=== PATIENT | female | born 1990 | race Asian ===

== ENCOUNTER 2021-09-25 12:27 | Outpatient (CLI) | payer OTHER ==
[2021-09-25] MEDS ORDERED: IOTHALAMATE MEGLUMINE 50 ML VIAL ONE (12:41)
[2021-09-25] MEDS ORDERED: GADOBUTROL 7.5 MMOL/7.5 ML VIAL ONE (12:41)
[2021-09-25] MEDS ORDERED: LIDOCAINE 1% 10 ML MDV SUBQ ONE (13:43)
[2021-09-25] MEDS ORDERED: GADOBUTROL 7.5 MMOL/7.5 ML VIAL IVP ONE (13:44)
[2021-09-25] MEDS ORDERED: IOTHALAMATE MEGLUMINE 50 ML VIAL IVP ONE (13:44)
--- NOTE | 2021-09-25 14:10 | XRAY Report ---
PROCEDURE: Arthrogram Needle Placement INDICATIONS: ANESTHESIA OF SKIN, SHOULDER PAIN TECHNIQUE: The indications, alternatives, benefits, risks, and complications of the procedure were explained to the patient. Written informed consent was obtained and placed in the chart. The shoulder was examin ed fluoroscopically and a site for needle placement chosen for entry into the glenohumeral joint from an anterior approach. The skin was prepped and draped in the usual fashion, and 1% lidocaine infilt rated from skin down to joint capsule. A spinal needle was inserted into the glenohumeral joint, and a small amount of iodinated contrast media injected to confirm intra-articular placement of the need le tip. This was followed by approximately 12 mL dilute solution of a gadolinium containing MR contr ast agent. The needle was removed and a dressing was applied. The patient was given postprocedural instructions and sent to the MR suite for MR imaging. FINDINGS: A single fluoroscopic spot image demonstrates intra-articular location of injected iodinated contrast . IMPRESSION: Successful fluoroscopically guided administration of dilute Gadolinium solution into the shoulder mary awad for MR shoulder arthrogram. Reviewed by: Cresencio Lim MD on 09/25/2021 2:09 PM PST Approved by: Cresencio Lim MD on 09/25/2021 2:09 PM PST Station ID: [id number]
--- NOTE | 2021-09-25 15:08 | MRI Report ---
PROCEDURE: Arthrogram Shoulder RT INDICATIONS: ANESTHESIA OF SKIN, SHOULDER PAIN CONTRAST: Fluoroscopic images from arthrogram injection performed earlier the same day. TECHNIQUE: After the administration of 12 mL of dilute intra-articular Gadolinium contrast, oblique coronal T1 a nd T2 spin echo with fat saturation, oblique sagittal T1 spin echo with and without fat saturation, o blique sagittal T2 fast spin echo with fat saturation, axial T1 spin echo with fat saturation through the shoulder. COMPARISON: None. FINDINGS: Image quality: Images are mildly degraded by patient motion despite repeat sequences being acquired. Diagnostic information is obtained. Rotator cuff: Mild supraspinatus tendinosis. Infraspinatus, teres minor, and subscapularis tendons a re intact. Increased T1-weighted signal within the superior subscapularis tendon and along the medial subscapularis muscle are most likely secondary to extravasation during the arthrogram injection, alt simon a small tear could be obscured. The rotator cuff musculature is normal in bulk. Bones and bursae: No acute trabecular bone injury. No significant glenohumeral degenerative changes are seen. The acromioclavicular joint is normally aligned. No significant subacromial/subdeltoid burs al effusion is seen. No filling defect is seen within the glenohumeral joint space. Capsule and soft tissues: There is nondisplaced tearing of the superior labrum extending into the po sterosuperior and anterosuperior labrum. There is mild tendinosis of the biceps long head tendon. The glenohumeral ligaments are grossly intact. IMPRESSION: 1.Nondisplaced tearing of the superior labrum extending to the anterosuperior and posterosuperior lab rum. 2.Mild biceps long head tendinosis. 3.Mild supraspinatus tendinosis. No significant rotator cuff tendon tear is seen. Reviewed by: Rajeev Dover MD on 09/25/2021 3:07 PM [facility] Approved by: Rajeev Dover MD on 09/25/2021 3:07 PM [facility] Station ID: [id number]
== END 2021-09-25 12:28 | disposition home or self-care (01) ==
LOC: DI 12:27
PROVIDERS: ATTEND Student in an Organized Health Care Education/Training Program
DX: S43.431A Superior glenoid labrum lesion of right shoulder, initial encounter (principal); M67.921 Unspecified disorder of synovium and tendon, right upper arm
CPT/HCPCS: 23350; 73222; 77002; A9585; Q9961

== ENCOUNTER 2022-09-13 08:58 | Outpatient (CLI) | payer OTHER | END 2022-09-13 08:59 | disposition home or self-care (01) | LOC: SC 08:58 | PROVIDERS: ATTEND Nurse Practitioner Family | DX: G47.33 Obstructive sleep apnea (adult) (pediatric) (principal) | CPT/HCPCS: 95806 ==

== ENCOUNTER 2023-01-15 11:23 | Outpatient (CLI) | payer OTHER ==
--- NOTE | 2023-01-15 12:09 | SLEEP CARE CONSULTATION ---
Information from patient questionnaire entered by Heath Jones. I have reviewed and concur with the information entered by Heath Jones. This document represents the service I personally performed and the decisions made by me, Kiara Krishna ARNP. History of Present Illness Service Date and Time: 01/15/2023 1123 Previous diagnosis: Mild, Obstructive Sleep Apnea-Hypopnea Syndrome AHI: 5.3 (in 2021) Reason for follow up: first compliance Equipment type: CPAP (RESMED AirSense 11, s/u 10/2022) Equipment obtained from: Other ([facility], getting supplies) Mask style: Nasal (small cushion, over the nose) Backup mask available: No (will keep old mask when replaced) Last cushion change: month Prior sleep studies: No Type of Sleep Study: Home sleep study (COMPLETED 09/14/22) HPI additional information: GERALDINE GONZALEZ was diagnosed to have mild, AHI 5.3, obstructive sleep apnea- hypopnea syndrome and returned today for CPAP therapy first compliance follow- up. Sleep Study - Results Type of Sleep Study: Home sleep study (COMPLETED 09/14/22) Prior sleep studies: No CPAP Compliance Data - Data Reviewed with Patient Average duration of nightly device use: 5 hours 44 minutes Compliance rate %: 67 (25/30 days used) Current pressure setting (cmH2O): 4-15 (median 5.9, avg 8.8, max 9.6) Average residual AHI: 0.3 Central apnea: 0.1 Obstructive apnea: 0.1 Hypopnea: 0.1 Average large leak: 0.5 LPM Compliance data discussion: She is changing from nights to days schedule right now. Subjective Missed days of use due to: reports: travel, other (allergy; left at home when sleeping at friends house) Patient concerns: reports: condensation in mask/hose (better with adjustments she made), other (headache with TMJ). denies: aerophagia, mask discomfort, air blowing in eyes, mask leak noise, nasal congestion, dry mouth, nose, throat, epistaxis Observed to snore while using device: No Current pressure setting perceived as: comfortable On therapy, patient: reports: sleeping better, awakening more refreshed, being more awake and alert during the day, more rested overall, other (less dry mouth). denies: drowsiness while driving Initial [place] Sleepiness Scale score: 9 (08/21/2022) Current [place] Sleepiness Scale score: 15 (01/15/23) Allergies and Home Medications Known drug allergies: No Drug allergies reviewed: Yes Home medication list reviewed: Yes (no changes) Allergy and home medication list: Allergies No Known Drug Allergies Allergy Review of Systems Review of systems same as previous: No (Myofascial pain syndrome of right shoulder) Physical Exam Vital signs obtained and entered by: HEATH Dash MA Blood Pressure: 108/60 (LEFT ARM) Cuff size: regular Heart Rate: 68 O2 Saturation: 98 Height: 5 ft 3 in Weight: 153 lb 9.6 oz Body Mass Index: 27.1 BMI Classification: Overweight Impression and Plan 1. Obstructive Sleep Apnea-Hypopnea Syndrome, mild, with fair treatment compliance and good apnea control. On CPAP therapy, the patient has better sleep quality and is more rested overall. She has been having some problem with allergies and TMJ pain. She is waiting to get her mouth guard fixed so she can use it. She gets more headaches from not being able to use the device as well. She is happy with CPAP use and does feel an improvement of her sleep. Her pressure occasionally feels high but overall has been comfortable. The patients pressure will be changed to autoCPAP 6-8 cmH20 to reflect pressures being used. Patient advised to contact me if pressure change is uncomfortable so that it can be adjusted. Goals for apnea control discussed. Patient's apnea severity and rationale for treatment to reduce apnea, improve sleep quality and reduce cardiovascular and cerebrovascular events was reviewed. I also reviewed the benefit of consistent device use of CPAP for depression, anxiety and mood disorder. 2. Overweight, unspecified. Currently patients BMI is 27.1. Obesity increases the risk of apnea, CPAP pressure requirements and overall health risks especially cardiovascular and diabetes. Thus patient is advised to lose weight. The patient's CPAP pressure range should accommodate some weight loss. Symptoms to report for additional pressure adjustment discussed. * Change auto CPAP pressure to 6-8 cmH2O * Notify me if snoring with mask or feeling that the pressure is too much or too little * Attempt to lose weight * Call this office if any problems using CPAP * Return for follow up in 1-2 months, or sooner if concerns arise Counseling Topics: Spare mask, Weight loss health impact Visit Type: In Office Time Spent with Patient (minutes): 21 Provider Statement: I spent 100% of the Face to Face Visit with the patient with greater than 50% spent counseling the patient and coordination of care.
[2023-01-15 13:24] VITALS: BP 108/60
== END 2023-01-15 11:24 | disposition home or self-care (01) ==
LOC: SC 11:23
PROVIDERS: ATTEND Nurse Practitioner Family
DX: G47.33 Obstructive sleep apnea (adult) (pediatric) (principal); E66.3 Overweight; Z68.27 Body mass index [BMI] 27.0-27.9, adult
CPT/HCPCS: 99212; 99213

== ENCOUNTER 2023-02-14 13:39 | Outpatient (CLI) | payer OTHER ==
--- NOTE | 2023-02-14 14:38 | Sleep Patient Instructions ---
Sleep Center Visit Summary - Patient Visit Information Reason for Visit: 1 month CPAP therapy follow up - Patient Instructions Additional Instructions: You will continue with CPAP therapy with pressure set at 6-8 cmH2O. We encourage you to continue to try to lose weight. Please follow up with the sleep care office in 3 months. - Clinic Information Contact: [facility] [address] [place] [id number] [email or web address] T: [phone]
--- NOTE | 2023-02-14 14:40 | SLEEP CARE CONSULTATION ---
Information from patient questionnaire entered by Heath Jones. I have reviewed and concur with the information entered by Heath Jones. This document represents the service I personally performed and the decisions made by me, Kiara Krishna ARNP. History of Present Illness Service Date and Time: 02/14/2023 1339 Previous diagnosis: Mild, Obstructive Sleep Apnea-Hypopnea Syndrome AHI: 5.3 (in 2021) Reason for follow up: one month Equipment type: CPAP (RESMED AirSense 11, s/u 10/2022) Equipment obtained from: Other ([facility], getting supplies) Mask style: Nasal (small cushion, over the nose) Backup mask available: Yes (will keep old mask since new one is on the way) Last cushion change: 2 weeks ago Prior sleep studies: No Type of Sleep Study: Home sleep study (COMPLETED 09/14/22) HPI additional information: GERALDINE GONZALEZ was diagnosed to have mild, AHI 5.3, obstructive sleep apnea- hypopnea syndrome and returned today for CPAP therapy one month follow-up. Sleep Study - Results Type of Sleep Study: Home sleep study (COMPLETED 09/14/22) Prior sleep studies: No CPAP Compliance Data - Data Reviewed with Patient Average duration of nightly device use: 5 HRS 30 MIN Compliance rate %: 70 ( days used) Current pressure setting (cmH2O): 6-8 Average residual AHI: 0.4 Central apnea: 0.1 Obstructive apnea: 0.2 Average large leak: 0.6 L/min Subjective Missed days of use due to: reports: other (fell asleep without mask) Patient concerns: reports: air blowing in eyes, condensation in mask/hose, other (headache due to TMJ/myofascial pain--grinds teeth). denies: aerophagia, mask discomfort, mask leak noise, nasal congestion, dry mouth, nose, throat, epistaxis Current pressure setting perceived as: comfortable On therapy, patient: reports: sleeping better, awakening more refreshed, being more awake and alert during the day, more rested overall, drowsiness while driving (some due to shift changing) Initial [place] Sleepiness Scale score: 9 (08/21/2022) Current [place] Sleepiness Scale score: 15 (02/14/23) Allergies and Home Medications Known drug allergies: No Drug allergies reviewed: Yes Home medication list reviewed: Yes (Cetirizine) Allergy and home medication list: Allergies No Known Drug Allergies Allergy Review of Systems Review of systems same as previous: No (myofascial pain syndrome (PT); mild carpal tunnel (OT)) Physical Exam Vital signs obtained and entered by: HEATH Dash MA Blood Pressure: 100/60 (LEFT ARM) Cuff size: regular Heart Rate: 87 O2 Saturation: 98 Height: 5 ft 3 in Weight: 153 lb Body Mass Index: 27.1 BMI Classification: Overweight Impression and Plan 1. Obstructive Sleep Apnea-Hypopnea Syndrome, mild, with good treatment compliance and good apnea control. On CPAP therapy, the patient has better sleep quality and is more rested overall. She is doing well and has significant improvement of her sleep apnea. She has no major cpap concerns. Patient's apnea severity and rationale for treatment to reduce apnea, improve sleep quality and reduce cardiovascular and cerebrovascular events was reviewed. I also reviewed the benefit of consistent device use of CPAP for depression, anxiety and mood disorder. 2. Overweight, unspecified. Currently patients BMI is 27.1. Obesity increases the risk of apnea, CPAP pressure requirements and overall health risks especially cardiovascular and diabetes. Thus patient is advised to lose weight. * Continue auto CPAP pressure at 6-8 cmH2O * Notify me if snoring with mask or feeling that the pressure is too much or too little * Attempt to lose weight * Call this office if any problems using CPAP * Return for follow up in 3 months, or sooner if concerns arise Counseling Topics: Spare mask, Weight loss health impact Visit Type: In Office Time Spent with Patient (minutes): 20 Provider Statement: I spent 100% of the Face to Face Visit with the patient with greater than 50% spent counseling the patient and coordination of care.
[2023-02-14 15:01] VITALS: BP 100/60
== END 2023-02-14 13:40 | disposition home or self-care (01) ==
LOC: SC 13:39
PROVIDERS: ATTEND Nurse Practitioner Family
DX: G47.33 Obstructive sleep apnea (adult) (pediatric) (principal); E66.3 Overweight; Z68.27 Body mass index [BMI] 27.0-27.9, adult
CPT/HCPCS: 99212; 99213

== ENCOUNTER 2023-11-14 08:00 | Outpatient (CLI) | payer OTHER ==
[2023-11-15 08:18] LABS: BILIRUBIN,URINE NEGATIVE (NEGATIVE); GLUCOSE, URINE (UA) NEGATIVE (NEGATIVE); KETONES,URINE (UA) NEGATIVE (NEGATIVE); LEUKOCYTE ESTERASE, URINE NEGATIVE (NEGATIVE); NITRITE,URINE NEGATIVE (NEGATIVE); OCCULT BLOOD,URINE NEGATIVE (NEGATIVE); PH,URINE 6.5 PH (5.0-7.5); PROTEIN,URINE NEGATIVE (NEGATIVE); UROBILINOGEN,URINE 0.2 (NORMAL) E.U./dL (NORMAL)
[2023-11-15 08:27] LABS: BACTERIA,URINE Rare /HPF (None Seen); CLARITY,URINE CLEAR (CLEAR); RBC,URINE None Seen /HPF (0-5); SQUAMOUS EPITHELIAL CELL,UR RARE Squamous (<= Few); WBC,URINE 0-3 /HPF (0-5)
== END 2023-11-14 23:59 | disposition home or self-care (01) ==
LOC: LAB.WC 08:00
PROVIDERS: ATTEND Obstetrics & Gynecology
DX: Z34.90 Encounter for supervision of normal pregnancy, unspecified, unspecified trimester (principal)
CPT/HCPCS: 81001; 87086

== ENCOUNTER 2023-11-26 12:55 | Outpatient (CLI) | payer OTHER ==
--- NOTE | 2023-11-26 17:36 | Ultrasound Report ---
PROCEDURE: OB 1st Trimester w/TV INDICATIONS: POSITIVE TEST OUTSIDE/PRIOR DATING DATA: Last menstrual period (LMP): 09/13/2023. LMP-based estimated date of delivery (WILFRED): 06/19/2024. First dating scan (date and location): 11/26/2023. Estimated date of delivery (WILFRED) from first dating scan: 06/19/2024. TECHNIQUE: Real-time scanning was performed of the fetus and maternal pelvic organs, with image documentation. Endovaginal scanning was also performed to better visualize the fetus and maternal ovaries. COMPARISON: None. FINDINGS: Intrauterine gestational sac present. Embryo: Single live intrauterine is identified with crown-rump length measuring 3.6 cm cor responding to 10 weeks 4 days Heart rate: 178 bpm. Other: No perigestational fluid collection. Measurement variability in dating: +/- 4 weeks by LMP, +/- 7 days by mean sac diameter (use before 6 weeks gestation if crown-rump length not able to be measured), +/- 5 days by crown-rump length (6-12 weeks gestation). Maternal organs: Ovaries appear within normal limits. Multiple uterine fibroids largest measuring 3. 7 cm. IMPRESSION: Single live intrauterine with gestational age of 10 weeks 4 days. Uterine fibroids. Recommend follow-up imaging at 2022 weeks for dates and anatomy. Reviewed by: Rubina Sprague MD on 11/26/2023 5:35 PM PST Approved by: Rubina Sprague MD on 11/26/2023 5:35 PM PST Station ID: [id number]
== END 2023-11-26 12:56 | disposition home or self-care (01) ==
LOC: DI 12:55
PROVIDERS: ATTEND Obstetrics & Gynecology
DX: Z34.91 Encounter for supervision of normal pregnancy, unspecified, first trimester (principal)

== ENCOUNTER 2023-12-12 08:00 | Outpatient (CLI) | payer OTHER ==
[2023-12-12 20:44] LABS: CHLAMYDIA TRACHOMATIS DNA NEGATIVE (NEGATIVE); NEISSERIA GONORRHOEAE DNA NEGATIVE (NEGATIVE); TRICHOMONAS VAGINALIS DNA NEGATIVE (NEGATIVE)
== END 2023-12-12 23:59 | disposition home or self-care (01) ==
LOC: LAB.WC 08:00
PROVIDERS: ATTEND Nurse Practitioner
DX: Z11.3 Encounter for screening for infections with a predominantly sexual mode of transmission (principal)
CPT/HCPCS: 87491; 87591; 87661

== ENCOUNTER 2024-01-31 15:13 | Outpatient (CLI) | payer OTHER ==
--- NOTE | 2024-01-31 16:52 | Ultrasound Report ---
PROCEDURE: OB Anatomy Scan INDICATIONS: SUPERVISION OF OUTSIDE/PRIOR DATING DATA: Last menstrual period (LMP): 09/13/2023. LMP-based estimated date of delivery (WILFRED): 06/19/2024. First dating scan (date and location): 11/26/2023. Estimated date of delivery (WILFRED) from first dating scan: 06/19/2024. The below data below was generated using the ultrasound WILFRED of 06/19/2024 TECHNIQUE: Real-time scanning was performed of the fetus, with image documentation and biometric measurements. Endovaginal scanning: Not performed. COMPARISON: OB ultrasound 11/26/2023. FINDINGS: General: A single living intrauterine gestation is present. Presentation: Variable Placenta: Placental position is anterior, without previa. Amniotic fluid index: 12.4 cm, within normal limits for gestational age. Largest pocket 3.5 cm. heart rate: 150 beats per minute. Maternal cervical canal: 3.9 cm long; normal length is 2.5 cm or more. biometrics: Biparietal diameter: 4.23 cm, 18 weeks 6 days. 9th percentile Head circumference: 16.2 cm, 19 weeks 0 days, 7th percentile. Abdominal circumference: 14.1 cm, 19 weeks 3 days, 27th percentile Femur length: 3.04 cm, 19 weeks 3 days, 22nd percentile Estimated gestational age from initial scan: 20 weeks 0 days Composite gestational age from present scan: 19 weeks 0 days Estimated weight and percentile: 289 grams, 16th percentile Measurement variability in biometric dating: +/- 10 days from 12-20 weeks gestation, +/- 2 weeks from 20-30 weeks gestation, +/- 3 weeks at 30 weeks gestation or later. Anatomic survey: Neuro: Ventricles are normal at less than 10 mm. Cisterna magna is normal at 3-11 mm. Cerebellum i s normal in size and morphology. Nuchal skin fold: Normal at less than 6 mm between 14 and 20 weeks gestational age. Face: Nose and lips, facial profile are normal. Spine: No evidence for spina bifida. Heart: 4-chambered heart is present, with normal ventricular outflow tracts. Diaphragm: Diaphragm is intact. Stomach: Left-sided stomach is present. Kidneys: No hydronephrosis. Normal is less than 5 mm in 2nd trimester, less than 7 mm in 3rd trimester. Cord: 3 vessel cord has orthotopic insertion. Bladder: Normal in size. Extremities: All 4 extremities are visualized. A few uterine fibroids. Largest measuring 6.8 x 5.1 x 3.9 cm, appears increased. IMPRESSION: 1. Lopez living intrauterine at 19 weeks 0 days based on today's ultrasound. Fetus is i n the 16th percentile for weight. 2. Normal placenta and amniotic fluid. 3. Normal and complete anatomic survey. Reviewed by: Jas Parsons MD on 01/31/2024 4:51 PM PDT Approved by: Jas Parsons MD on 01/31/2024 4:51 PM PDT Station ID: [id number]
== END 2024-01-31 15:14 | disposition home or self-care (01) ==
LOC: DI 15:13
PROVIDERS: ATTEND Nurse Practitioner
DX: Z34.92 Encounter for supervision of normal pregnancy, unspecified, second trimester (principal)

== ENCOUNTER 2024-02-03 10:41 | Outpatient (CLI) | payer OTHER ==
[2024-02-03 10:59] LABS: BASOPHILS % (AUTO) 0.2 %; EOSINOPHILS % (AUTO) 0.9 %; HCT - HEMATOCRIT 38.2 % (37.0-47.0); HGB - HEMOGLOBIN 12.6 g/dL (12.0-16.0); LYMPHOCYTES % (AUTO) 14.1 %; MEAN CORPUSCULAR HEMOGLOBIN 29.5 pg (27.0-31.0); MEAN CORPUSCULAR VOLUME 89.5 fL (81.0-99.0); MEAN PLATELET VOLUME 11.8 fL (7.9-10.8); MONOCYTES % (AUTO) 6.7 %; NEUTROPHILS % (AUTO) 77.5 %; PLT - PLATELET COUNT 170 10^3/uL (130-450); RED BLOOD COUNT 4.27 10^6/uL (4.20-5.40); RED CELL DISTRIBUTION WIDTH 12.9 % (12.0-15.0); WHITE BLOOD COUNT 14.1 x10^3/uL (4.8-10.8)
[2024-02-03 11:05] LABS: SLIDE REVIEW? Indicated
[2024-02-03 11:23] LABS: ABNORMAL LYMPHS % (MANUAL) 0 %; BAND NEUTROPHILS % (MANUAL) 0 %
[2024-02-03 11:25] LABS: EOSINOPHILS # (MANUAL) 0.1 10^3/uL (0-0.7); LYMPHOCYTES # (MANUAL) 1.3 10^3/uL (1.5-3.5); LYMPHOCYTES % (MANUAL) 6 %; MONOCYTES # (MANUAL) 0.7 10^3/uL (0.0-1.0); MYELOCYTES % (MANUAL) 1 %; NEUTROPHILS # (MANUAL) 11.8 10^3/uL (1.5-6.6); REACTIVE LYMPHS % (MANUAL) 3 %
[2024-02-03 11:26] LABS: DIFFERENTIAL COMMENT MANUAL DIFFERENTIAL; RBC MORPHOLOGY (MULTIPLE) 1+ ANISOCYTOSIS (NORMAL)
[2024-02-04 05:12] LABS: HBsAG SCREEN Negative (Negative); HIV SCREEN 4TH GENERATION Non Reactive (Non Reactive)
[2024-02-04 06:10] LABS: RPR Non Reactive (Non Reactive)
[2024-02-04 09:10] LABS: VARICELLA-ZOSTER AB IGG 336 index (Immune >165)
[2024-02-05 01:07] LABS: HCV AB Non Reactive (Non Reactive)
== END 2024-02-03 10:42 | disposition home or self-care (01) ==
LOC: LAB 10:41
PROVIDERS: ATTEND Obstetrics & Gynecology
DX: Z34.90 Encounter for supervision of normal pregnancy, unspecified, unspecified trimester (principal)
CPT/HCPCS: 36415; 81511; 85025; 86592; 86762; 86787; 86803; 86850; 86900; 86901; 87340; 87389

== ENCOUNTER 2024-03-12 10:23 | Outpatient (CLI) | payer OTHER ==
[2024-03-12 10:48] VITALS: BP 122/68
--- NOTE | 2024-03-12 13:17 | PROVIDER PROGRESS NOTE ---
- HPI Chief Complaint: Labor Current : Vital Signs Temperature 98.6 F 03/12/24 10:40 Heart Rate 90 03/12/24 10:40 Respiratory Rate 16 03/12/24 10:40 Blood Pressure 122/68 03/12/24 10:40 Temperature 98.6 F 03/12/24 10:40 Heart Rate 90 03/12/24 10:40 Respiratory Rate 16 03/12/24 10:40 Blood Pressure 122/68 03/12/24 10:40 O2 Saturation If not protocol: Oxygen Flow, liters/minute - Procedures OB Procedure Performed: NST Diagnosis/Indication for NST: labor NST Procedure: EFM: 140s, moderate variability, no decelerations Petty: no contractions monitoring reassuring (Too early for NST) Performed and read 03/12/24 Service Date of procedure: 03/12/24 - Plan Plan: 33yo at 25.6w by LMP consistent with 10w US presenting with her with concern of cramping pains since last night. Denies leaking fluid or vaginal bleeding. Good movement. complicated by history of LEEP/CKC, fibroid uterus, AMA. Allergies: None Meds: Buproprion Med: Depression/anxiety, sleep apnea Surg: Right shoulder, LEEP/CKC Fam: MGF Stroke Social: , denies JESSICA VSS as above GEN: NAD CV: Regular rate Resp: Breathing unlabored Abd: soft, nt, no rebound or guarding Ext: nt Speculum: FFN collected, no pooling or bleeding, unable to visualize cervix SVE: closed but very posterior limited exam US CL: 2.3cm, 1.8cm FFN POS 33yo at 25.6w by LMP consistent with 10w US with incompetent cervix, threatened labor - Discussed with patient, recommend to be monitored in tertiary center. She accepts plan but would like to drive POV. Reviewed risks including labor and delivery, alternatives including ambulance and helicopter transfer. She prefers POV, signed consents for transfer and POV. - Appreciate [facility] acceptance of this patient. - Initially difficult to obtain labs and IV placement and now deferred as she will be travelling POV. - Patient to drive now to for monitoring.
[2024-03-12] MEDS ORDERED: LACTATED RINGERS 1,000 ML IV SCH (14:00)
--- NOTE | 2024-03-12 14:03 | Ultrasound Report ---
PROCEDURE: OB 14+ Weeks INDICATIONS: Cramping 24w, history of LEEP and CKC, uterine fib OUTSIDE/PRIOR DATING DATA: Last menstrual period (LMP): 09/13/2023. LMP-based estimated date of delivery (WILFRED): 06/19/2024. The below data below was generated using the clinical WILFRED of 06/19/2024 TECHNIQUE: Real-time scanning was performed of the fetus, with image documentation and biometric measurements. Endovaginal scanning: Not performed. COMPARISON: 01/31/2024. FINDINGS: General: A single living intrauterine gestation is present. Presentation: Vertex Placenta: Placental position is anterior, without previa. Amniotic fluid index: 15.3 cm, within normal limits for gestational age. heart rate: 145 beats per minute. Maternal cervical canal: 2.3 cm long; normal length is 2.5 cm or more. IMPRESSION: Single living intrauterine at 25 weeks 6 days, WILFRED of 06/19/2024. Incompetent cervix, measuring 2.3 cm with transvaginal view. Reviewed by: Hao Lemons MD on 03/12/2024 2:02 PM PDT Approved by: Hao Lemons MD on 03/12/2024 2:02 PM PDT Station ID: [id number]
== END 2024-03-12 15:20 | disposition short-term general hospital (02) ==
LOC: FBP 10:23 → WFO 10:23
PROVIDERS: ATTEND Obstetrics & Gynecology
DX: O09.512 Supervision of elderly primigravida, second trimester (principal); O34.32 Maternal care for cervical incompetence, second trimester; O47.02 False labor before 37 completed weeks of gestation, second trimester; O34.12 Maternal care for benign tumor of corpus uteri, second trimester; D25.9 Leiomyoma of uterus, unspecified; O99.342 Other mental disorders complicating pregnancy, second trimester; F32.A Depression, unspecified; Z3A.25 25 weeks gestation of pregnancy; Z98.890 Other specified postprocedural states
CPT/HCPCS: 36415; 80053; 82731; 85025; 99215

== ENCOUNTER 2024-04-01 10:04 | Outpatient (CLI) | payer OTHER ==
[2024-04-01 11:23] LABS: HGB - HEMOGLOBIN 11.6 g/dL (12.0-16.0); MEAN CORPUSCULAR HGB CONC 33.1 g/dL (32.0-36.0); MEAN CORPUSCULAR VOLUME 90.4 fL (81.0-99.0); MEAN PLATELET VOLUME 12.3 fL (7.9-10.8); RED BLOOD COUNT 3.87 10^6/uL (4.20-5.40); RED CELL DISTRIBUTION WIDTH 13.2 % (12.0-15.0); WHITE BLOOD COUNT 12.4 x10^3/uL (4.8-10.8)
[2024-04-02 05:13] LABS: RPR Non Reactive (Non Reactive)
== END 2024-04-01 10:05 | disposition home or self-care (01) ==
LOC: LAB 10:04
PROVIDERS: ATTEND Nurse Practitioner
DX: O09.512 Supervision of elderly primigravida, second trimester (principal)
CPT/HCPCS: 36415; 82950; 85027; 86592

== ENCOUNTER 2024-04-06 08:22 | Outpatient (CLI) | payer OTHER ==
[2024-04-06 09:05] LABS: GTT GLUCOSE,FASTING 94 mg/dL (74-109)
== END 2024-04-06 08:23 | disposition home or self-care (01) ==
LOC: LAB 08:22
PROVIDERS: ATTEND Nurse Practitioner
DX: O99.810 Abnormal glucose complicating pregnancy (principal)
CPT/HCPCS: 36415; 82951; 82952

== ENCOUNTER 2024-04-14 11:13 | Outpatient (CLI) | payer OTHER ==
--- NOTE | 2024-04-15 00:07 | Ultrasound Report ---
PROCEDURE: OB Follow up INDICATIONS: UTERINE FIBROIDS IN OUTSIDE/PRIOR DATING DATA: Last menstrual period (LMP): 09/13/2023. LMP-based estimated date of delivery (WILFRED): 06/19/2024. First dating scan (date and location): 11/26/2023. Estimated date of delivery (WILFRED) from first dating scan: 06/19/2024. The below data below was generated using the clinical WILFRED of 06/19/2024 TECHNIQUE: Real-time scanning was performed of the fetus, with image documentation and biometric measurements. Endovaginal scanning: Not performed. COMPARISON: OB ultrasound 03/12/2024 FINDINGS: General: A single living intrauterine gestation is present. Presentation: Breech Placenta: Placental position is anterior, without previa. Amniotic fluid index: 16.8 cm, within normal limits for gestational age. Largest pocket 4.9 cm heart rate: 157 beats per minute. Maternal cervical canal: 3.1 cm cm long; normal length is 2.5 cm or more. Proximal cervix appears op en. biometrics: Biparietal diameter: 7.4 cm, 29 weeks 4 days. 13.3 percentile. Head circumference: 28.8 cm, 31 weeks 5 days. 47th percentile. Abdominal circumference: 26.3 cm, 30 weeks 3 days. 42nd percentile. Femur length: 5.5 cm, 29 weeks 1 day. 7th percentile. Estimated gestational age from initial scan: 30 weeks 4 days Composite gestational age from present scan: 30 weeks 1 day Estimated weight and percentile: 1507 g. 22nd percentile. Measurement variability in biometric dating: +/- 10 days from 12-20 weeks gestation, +/- 2 weeks from 20-30 weeks gestation, +/- 3 weeks at 30 weeks gestation or more. Small fibroid measuring 1.9 cm. IMPRESSION: 1. Lopez living intrauterine at 30 weeks 1 day based on today's ultrasound. Fetus is in the 22nd percentile for weight. Femur length is 7th percentile. 2. Normal placenta and amniotic fluid. 3. Cervix measures 3.1 cm in length. The proximal cervix appears open/ incompetent. Preliminary findings were conveyed to Dr. Ames by the platen grinder at 12:01 PM. Reviewed by: Jas Parsons MD on 04/15/2024 12:06 AM PDT Approved by: Jas Parsons MD on 04/15/2024 12:06 AM PDT Station ID: [id number]
== END 2024-04-14 11:14 | disposition home or self-care (01) ==
LOC: DI 11:13
PROVIDERS: ATTEND Nurse Practitioner
DX: O09.513 Supervision of elderly primigravida, third trimester (principal); O34.13 Maternal care for benign tumor of corpus uteri, third trimester; O26.873 Cervical shortening, third trimester; Z3A.30 30 weeks gestation of pregnancy

== ENCOUNTER 2024-05-08 13:18 | Outpatient (CLI) | payer OTHER | END 2024-05-08 13:19 | disposition home or self-care (01) | LOC: MAC.DIA 13:18 | PROVIDERS: ATTEND Nurse Practitioner | DX: O24.410 Gestational diabetes mellitus in pregnancy, diet controlled (principal); Z71.3 Dietary counseling and surveillance; Z71.89 Other specified counseling ==

== ENCOUNTER 2024-05-11 10:11 | Outpatient (CLI) | payer OTHER ==
--- NOTE | 2024-05-11 17:51 | Ultrasound Report ---
PROCEDURE: OB Follow up INDICATIONS: GESTATIONAL DIABETES MELLITUS OUTSIDE/PRIOR DATING DATA: Last menstrual period (LMP): 09/13/2023. LMP-based estimated date of delivery (WILFRED): 06/19/2024. First dating scan (date and location): 11/26/2023. Estimated date of delivery (WILFRED) from first dating scan: 06/19/2023. The below data below was generated using the sonographic WILFRED of the TECHNIQUE: Real-time scanning was performed of the fetus, with image documentation and biometric measurements. Endovaginal scanning: Not performed. COMPARISON: 04/14/2024 FINDINGS: General: A single living intrauterine gestation is present. Presentation: Vertex Placenta: Placental position is anterior, without previa. Amniotic fluid index: 14.0 cm, largest pocket is 4.3 cm, normal for gestational age. heart rate: 153 beats per minute. Maternal cervical canal: Closed and 3.5 cm long; normal length is 2.5 cm or more. biometrics: Biparietal diameter: 8.3 cm, 33 weeks, 3 days, 20th percentile Head circumference: 30.9 cm, 34 weeks, 4 days, 18th percentile Abdominal circumference: 30.4 cm, 34 weeks, 2 days, 52nd percentile Femur length: 6.2 cm, 32 weeks, 1 day, 3rd percentile Estimated gestational age from initial scan: 34 weeks 3 days Composite gestational age from present scan: 33 weeks 4 days Estimated weight and percentile: 2242 g, 23rd percentile Measurement variability in biometric dating: +/- 10 days from 12-20 weeks gestation, +/- 2 weeks from 20-30 weeks gestation, +/- 3 weeks at 30 weeks gestation or more. Other: Maternal uterine fibroid measures 2.7 cm in size. IMPRESSION: Single intrauterine with appropriate symmetric growth since prior exam. Composite gestational age is 6 days behind the expected gestational age. Estimated weight of the 23rd percentile. The cervix now appears closed. Normal amniotic fluid volume. Reviewed by: Teri Murray MD on 05/11/2024 5:50 PM PDT Approved by: Teri Murray MD on 05/11/2024 5:50 PM PDT Station ID: [id number]
== END 2024-05-11 10:12 | disposition home or self-care (01) ==
LOC: DI 10:11
PROVIDERS: ATTEND Nurse Practitioner
DX: O24.410 Gestational diabetes mellitus in pregnancy, diet controlled (principal); Z3A.33 33 weeks gestation of pregnancy

== ENCOUNTER 2024-05-21 17:31 | Outpatient (CLI) | payer OTHER ==
--- NOTE | 2024-05-21 17:55 | HISTORY & PHYSICAL EXAMINATION ---
Admit History - Visit Reason Visit Reason: Membranes rupture - Other Maternal History Other Maternal History: HPI: 33-year-old G1, P0 at 35 weeks 6 days gestation by LMP consistent with 10-week ultrasound presented today for leaking fluid. At approximately 1645, she not iced leaking fluid and called labor and delivery and was instructed to come in for evaluation. She has good movement. No VEGA/BV or RUQP. No vaginal bleeding. Denies nausea and vomiting. Denies urinary urgency or dysuria. No contractions. She was seen in clinic today for an NST for A2 GDM controlled with insulin. Sugars were poorly controlled and we increased her mealtime insulin. Most rec ent regimen 10 units of Lantus in the evening and 4 units with meals, increase to 6 today, but she has not had a chance to increase this. Most recent EFW on 05/11 was in the 23rd percentile. All other symptoms reviewed and were negative except per HPI. Course LMP: 09/13/2023 WILFRED by LMP: 06/19/2024 Initial US Date 11/26/2023, US Age 10 weeks 4 days, WILFRED by ultrasound: 06/19/2024 Final WILFRED: 06/19/2024 by LMP consistent with 10-week ultrasound FOB: Jonathon Rome PROBLEMS: GDM A2 - 04/30 - started 10U lantus/ 3 U aspart - 05/14 did not understand that she had two types of insulin, has only been taking aspart. Started 10u lantus . -05/21 2/9 fasting, 18 postprandial above goal. Multiple over 200. Increased regimen to aspart 6u/6u/6u, Lantus 10u every evening - Growth US 05/11 23%tile - Twice weekly NSTs AMA, on aspirin Uterine fibroid, 2.7cm on 05/11 Pre- Weight:148.6 BMI: 26.42 Blood type: B+ Rh: + Antibody: Negative CBC: H/H 14.0/41.9 plt 232 RUB:Immune VZV:Immune HBsAg: Negative HepC: NR RPR/AB-EIA: NR HIV: NR PAP:2020 - normal GC/CT: 12/12/23 HSV:denies in self and partner Genetic testin/5 quad ordered Covid: vaccinated Flu: vaccinated FAS:ordered 01/09 Placenta:Anterior Cord:3VC NIKOLAS: 12.4 EFW: 16% 50gm OGCT: 184 3HR GTT: 04/06/24- TDAP: given 03/20 Breast Pump: given 03/20 Antibody screen: 3rd trimester PLT 143 HGB 11.6 HCT 35.0 RPR : NR 3rd trimester HIV GBS: Pending PMH Depression/anxiety Eczema TMJ Low back pain Chronic shoulder pain Sleep apnea PSH Right shoulder SLAP repair LEEP OB History SH Denies tobacco, alcohol, drugs. . Family History Maternal grandfather: Stroke Allergies No known drug allergies Medications Lantus 10 units at night Aspart 6 units with meals Bupropion 150 mg daily Low-dose aspirin 81 mg daily vitamins Physical exam: General: Alert, oriented, no acute distress Head: Normal cephalic atraumatic Eyes: PERRLA, extraocular motions intact. Respiratory: Normal rate of respiration. No accessory muscle use, normal respiratory effort. Abdomen: Gravid, nontender, nondistended Extremities: Normal range of motion Neuro: Oriented x3. Normal movements Psych: Appropriate mood and affect. Normal judgment and insight : Gross fluid in vagina. Cervix closed. SSE: Positive nitrazine, Valsalva, pooling, ferning SVE: 0/0/-3 FHT: 145 beats per baseline, moderate variability, accelerations present, no decelerations. Reactive NST [place]: Occasional Labs: ROM plus: Positive Glucose: 151 H/H: 13.1/38% Platelets: 135 AST/ALT 20/07 Imaging: EFW on 05/11/2024: 2242 g, 23rd percentile Plan 33-year-old 35 weeks 6 days gestation by LMP consistent with 10-week ultrasound here for , prelabor rupture of membranes 1. , prelabor rupture of membranes -Grossly ruptured on exam. ROM plus positive.No cervical dilation. Fetus category 1. -GC/CT, GBS, UA pending 2. A2 GDM managed with insulin -Poorly controlled A2 GDM -Due to prematurity and uncontrolled GDM, there is a very high likelihood the will require transfer if delivered at our level 1 nursery. -I believe it is much better for the patient and the to transfer together and would benefit from transfer. -I appreciate Dr. Gallego at [facility] for currently excepting this patient. 3. Anxiety/depression 4. Advanced maternal age 5. Gestational thrombocytopenia -Initial platelets 232, third trimester 135 Meds/Allgy - Home Medications Home Medications: Ambulatory Orders Medication Instructions Recorded Confirmed Diclofenac Sodium [Voltcj] See Rx Instructions .ROUTE .COMPLEX 08/21/22 02/14/23 Ibuprofen [Motrin] See Rx Instructions .ROUTE .COMPLEX 08/21/22 02/14/23 Mite,D.farinae-D.pteronyssinus See Rx Instructions .ROUTE .COMPLEX 08/21/22 02/14/23 [Odactra 12 Sq-Hdm Sl Tablet] Tizanidine HCl See Rx Instructions .ROUTE .COMPLEX 08/21/22 02/14/23 buPROPion [Wellbutrin Xl] See Rx Instructions .ROUTE .COMPLEX 08/21/22 02/14/23 hydrOXYzine HCL [Hydroxyzine HCl] See Rx Instructions .ROUTE .COMPLEX 08/21/22 02/14/23 Cetirizine [ZyrTEC] See Rx Instructions .ROUTE .COMPLEX 02/14/23 02/14/23 - Allergies Allergies/Adverse Reactions: Allergies Allergy/AdvReac Type Severity Reaction Status Date / Time No Known Drug Allergies Allergy Verified 02/14/23 13:52 Plan for Labor - Plan For Labor I expect patient to be DC'd or transferred within 96 hours.: Yes
[2024-05-21 18:09] LABS: RUPTURE OF MEMBRANES PLUS POSITIVE (NEGATIVE)
[2024-05-21 18:40] LABS: BASOPHILS % (AUTO) 0.2 %; EOSINOPHILS # (AUTO) 0.1 10^3/uL (0.0-0.7); EOSINOPHILS % (AUTO) 0.7 %; HCT - HEMATOCRIT 38.3 % (37.0-47.0); HGB - HEMOGLOBIN 13.1 g/dL (12.0-16.0); LYMPHOCYTES # (AUTO) 1.8 10^3/uL (1.5-3.5); LYMPHOCYTES % (AUTO) 14.5 %; MEAN CORPUSCULAR HEMOGLOBIN 30.3 pg (27.0-31.0); MEAN CORPUSCULAR HGB CONC 34.2 g/dL (32.0-36.0); MEAN CORPUSCULAR VOLUME 88.7 fL (81.0-99.0); MEAN PLATELET VOLUME 12.5 fL (7.9-10.8); MONOCYTES # (AUTO) 1.1 10^3/uL (0.0-1.0); MONOCYTES % (AUTO) 8.6 %; NEUTROPHILS # (AUTO) 9.5 10^3/uL (1.5-6.6); NEUTROPHILS % (AUTO) 75.4 %; PLT - PLATELET COUNT 135 10^3/uL (130-450); RED BLOOD COUNT 4.32 10^6/uL (4.20-5.40); RED CELL DISTRIBUTION WIDTH 12.9 % (12.0-15.0); WHITE BLOOD COUNT 12.7 x10^3/uL (4.8-10.8)
[2024-05-21] MEDS: AMPICILLIN 2 GM in SODIUM CHLORIDE 0.9% MINIBAG 100 ML IV ONE (18:42)
[2024-05-21 18:48] LABS: ALBUMIN 3.5 g/dL (3.2-5.5); ALBUMIN/GLOBULIN RATIO 1.2 (1.0-2.2); BILIRUBIN,TOTAL 0.2 mg/dL (0.2-1.0); CALCIUM 9.3 mg/dL (8.5-10.3); CREATININE 0.5 mg/dL (0.6-1.3); POTASSIUM 3.6 mmol/L (3.5-4.5); TOTAL PROTEIN 6.4 g/dL (6.4-8.9)
[2024-05-21 19:21] LABS: BILIRUBIN,URINE NEGATIVE (NEGATIVE); GLUCOSE, URINE (UA) NEGATIVE (NEGATIVE); KETONES,URINE (UA) NEGATIVE (NEGATIVE); LEUKOCYTE ESTERASE, URINE NEGATIVE (NEGATIVE); NITRITE,URINE NEGATIVE (NEGATIVE); OCCULT BLOOD,URINE SMALL (NEGATIVE); PH,URINE 6.5 PH (5.0-7.5); PROTEIN,URINE 30 mg/dL (NEGATIVE); UROBILINOGEN,URINE 0.2 (NORMAL) E.U./dL (NORMAL)
[2024-05-21 19:37] LABS: BACTERIA,URINE Few /HPF (None Seen); CLARITY,URINE CLEAR (CLEAR); RBC,URINE 0-5 /HPF (0-5); SQUAMOUS EPITHELIAL CELL,UR MOD Squamous (<= Few); WBC,URINE 0-3 /HPF (0-5)
[2024-05-21 20:41] VITALS: BP 133/80
[2024-05-21] MEDS ORDERED: AMPICILLIN 1 GM in SODIUM CHLORIDE 0.9% MINIBAG 100 ML IV SCH (22:30)
[2024-05-21 23:00] LABS: CHLAMYDIA TRACHOMATIS DNA NEGATIVE (NEGATIVE); NEISSERIA GONORRHOEAE DNA NEGATIVE (NEGATIVE); TRICHOMONAS VAGINALIS DNA NEGATIVE (NEGATIVE)
== END 2024-05-21 20:57 | disposition short-term general hospital (02) ==
LOC: WFO 17:31 → FBP 17:33 → WFO 20:57
PROVIDERS: ATTEND Obstetrics & Gynecology
DX: O42.913 Preterm premature rupture of membranes, unspecified as to length of time between rupture and onset of labor, third trimester (principal); O24.414 Gestational diabetes mellitus in pregnancy, insulin controlled; Z3A.35 35 weeks gestation of pregnancy; O99.343 Other mental disorders complicating pregnancy, third trimester; F41.9 Anxiety disorder, unspecified; F32.A Depression, unspecified; O09.513 Supervision of elderly primigravida, third trimester; O99.113 Other diseases of the blood and blood-forming organs and certain disorders involving the immune mechanism complicating pregnancy, third trimester; D69.6 Thrombocytopenia, unspecified
CPT/HCPCS: 36415; 59025; 80053; 81001; 84112; 85025; 87081; 87086; 87491; 87591; 87661; 87797; 96374; 99215